=== PATIENT | male | born 1995 | race Caucasian/White ===

== ENCOUNTER 2023-04-02 10:04 | Outpatient (CLI) | payer BC, SELFPAY ==
[2023-04-02 10:29] VITALS: BP 151/94; PULSE 74; RESP 20; TEMP 36.9; O2SAT 96
--- NOTE | 2023-04-02 11:05 | DI.RAD_ITS ---
Exam(s) XR PAIN CLINIC LUMBAR SP 2V EXAM: XR PAIN CLINIC LUMBAR SP 2V CLINICAL HISTORY: DX: Lumbar Spondylosis TECHNIQUE: 2D and realtime digital imaging was performed. CONTRAST MATERIAL: Refer to procedure report. COMPARISON: No exams were available for comparison FINDINGS: Fluoroscopy was provided for Dr. Leiva during the performance of a lumbar facet joint injection. Ple ase refer to the procedure report for complete details. Ka,r=25.3 mGy IMPRESSION:
--- NOTE | 2023-04-02 11:07 | PDOC.PAIN ---
Date of service: 04/02/23 Time of Service: 11:07 Pain Managment Procedure Note Procedure Note Procedure Note: INTRA-ARTICULAR FACET JOINT INJECTION Cisco Tsai has been referred to the [facility] for intra-articular lumbar facet joint injection. COMMENTS: I previously evaluated him in the clinic. Because of his age, I am doing the facet joint injection approach vs LMBB. I am hoping that this procedure will knock out his pain flare Dx: Lumbosacral spondylosis without myelopathy Pre-procedure Pain VAS was 3/10 Patient was interviewed and the medical record reviewed. There were no medical, pharmacologic, radiographic or other structural contraindications to attempting fluoroscopically guided intra-articular lumbar facet joint injection. Risks and expected side effects as well as potential benefit of the procedure were reviewed and voiced concerns addressed. The printed consent form was signed and witnessed. Standard time-out procedure was performed. Patient was placed in the prone position on the fluoroscopy table and automated blood pressure cuff and pulse oximeter applied. The skin entry point for approaching bilateral facet joints at L4-L5 and L5-S1 was identified under the most advantageous fluoroscopic view and marked. Following thorough Chlorhexadine preparation of the skin and draping and 1% lidocaine infiltration of the skin entry point and subcutaneous tissues, a 22 gauge 3.5 spinal needle was placed under fluoroscopic guidance into bilateral facet joint. Intra-articular placement was confirmed by a clear arthrogram resulting from the injection of 0.25ml Omnipaque 240. I next injected 20mg Depomedrol (80 mg/cc) were injected intra-articularily with an initial reproduction of a significant component of the usual pain. Next, I injected 1 cc of 2% Lidocaine into the joint and the needle was removed. Vital signs were stable throughout the procedure and were as recorded in the docflowsheet by the nursing staff. If given, dosages of intravenous drugs for anxiolysis and analgesia were documented in MAR. Follow up plans and appointments were discussed. Post procedure instruction was given as documented in nursing documentation and having met discharge criteria,was discharged from the [facility]. COMMENTS: No complications. He can get back into his normal activity in 2 days time. Post-procedure pain VAS = 1/10 Oziel Leiva DO, MPH [facility] [place] CC: Lacy Moreland MD
[2023-04-02 11:13] VITALS: BP 127/99; PULSE 82; RESP 20; O2SAT 100
[2023-04-02] MEDS: Omnipaque 240 MG/ML 50 ML BTL IJ (11:18)
[2023-04-02] MEDS: methylPREDNISolone ACETATE 80 MG/ML VIAL IJ (11:19)
[2023-04-02] MEDS: Lidocaine 2% Pres-Free 5 ML VIAL IJ (11:19)
== END 2023-04-02 10:05 | disposition home or self-care (01) ==
PROVIDERS: PCP Physician Assistant; Visit Provider Preventive Medicine Occupational Medicine
DX: M47.817 Spondylosis without myelopathy or radiculopathy, lumbosacral region (principal)
CPT/HCPCS: 64493; 64494; 72100; J1040; Q9967